=== PATIENT | male | born 1955 | race Caucasian/White ===

== ENCOUNTER 2016-12-04 11:11 | Emergency (ER) | payer SELFPAY ==
[~2016-12-04] VITALS: Ht 165.1 cm; Wt 74.0 kg
[2016-12-04 11:32] VITALS: BP 110/71
== END 2016-12-04 18:23 | disposition home or self-care (01) ==
LOC: ER 12:29
DX: M77.9 Enthesopathy, unspecified (principal); E11.9 Type 2 diabetes mellitus without complications
CPT/HCPCS: 99282